=== PATIENT | female | born 1990 | race Caucasian/White ===

== ENCOUNTER 2020-10-23 08:09 | Inpatient (IN) | payer OTHER, SELFPAY ==
[2020-10-23] VITALS (17 sets, daily range): BP systolic 101–144; BP diastolic 37–121; PULSE 76–234; RESP 16–18; TEMP 36.6–37.2; O2SAT 97–100
--- NOTE | 2020-10-23 08:33 | WPDOBADMIT ---
Obstetrics - Admit Note Admission Note: 30 y/o here in spontaneous labor. record reviewed. No pertinent additions to the history and/or any subsequent changes in the physical findings that are not consistent with the expected course of the were found. Additions to the history and/or subsequent changes in the physical findings follow. None.
[2020-10-23] MEDS: LACTATED RINGERS 1,000 ML 125 ML IV CONT (08:42)
[2020-10-23] MEDS: AMPICILLIN 2 GM/NS 100 ML 2 GM/100 ML BAG IVPB (08:51)
[2020-10-23 08:52] LABS: Basophils Percent Auto 0.3 % (0.2-1.2); Eosinophils Absolute Auto 0.2 K/mm3 (0-0.3); Eosinophils Percent Auto 1.3 % (0-4.4); Hematocrit 36.6 % (37.0-47.0); Hemoglobin 12.9 g/dL (12.0-15.0); Immature Granulocyte Absolute 0.11 K/mm3 (0.00-0.031); Immature Granulocyte Percent A 0.8 % (0-0.5); Lymphocytes Absolute Auto 1.97 K/mm3 (0.9-3.2); Lymphocytes Percent Auto 13.9 % (18.3-44.2); Mean Corpuscular HGB Conc 35.2 g/dl (32-36); Mean Corpuscular Hemoglobin 32.9 pg (26-34); Mean Corpuscular Volume 93.4 fl (80-100); Mean Platelet Volume 10.1 fl (7.4-10.4); Monocytes Absolute Auto 1.3 K/mm3 (0.1-0.6); Monocytes Percent Auto 8.8 % (2.6-8.5); Neutrophils Absolute Auto 10.7 K/mm3 (1.3-6.7); Neutrophils Percent Auto 74.9 % (45.5-73.1); Platelet Count Result 298 k/mm3 (150-375); Red Blood Count 3.92 M/mm3 (4.2-5.4); Red Cell Distribution Width 12.7 % (11.5-14.5); White Blood Count 14.2 K/mm3 (4.5-10.0)
[2020-10-23 09:06] LABS: Alanine Aminotransferase 12 U/L (4-35); Albumin Level 3.4 g/dL (3.5-5.1); Alkaline Phosphatase 192 U/L (38-126); Anion Gap 8 mmol/L (8-16); Aspartate Amino Transferase 24 U/L (14-36); Bilirubin,Total < 0.1 mg/dL (0.2-1.3); Blood Urea Nitrogen 13 mg/dL (7-17); Calcium 8.8 mg/dL (8.4-10.2); Carbon Dioxide 17 mmol/L (22-30); Chloride 109 mmol/L (98-107); Estimated Glomerular Filt Rate > 60; Glucose 98 mg/dL (65-105); Potassium 3.7 mmol/L (3.4-5.0); Sodium 134 mmol/L (137-145)
--- NOTE | 2020-10-23 09:14 | LDADM ---
This patient, Jessie Valle, was admitted to Labor/Delivery/Recovery 107 on 10/23/20 at 08:09. Plans for labor, pain management and were discussed with patient. Patient/family oriented to hospital policies and general routines including ID bracelet, bed and alarms, visiting hours, pain management, procedures, bathroom and other care routines, personal items, smoking policy, room service/diet and guest tray routines, infant security routines, and visiting hours. Patient/Family are encouraged to report perceived risks to care and to ask questions if they do not understand what they are told or what they should do. See OBIX for further documentation.
[2020-10-23 09:20] LABS: Uric Acid 4.7 mg/dL (2.5-7.5)
--- NOTE | 2020-10-23 11:25 | PM.OBPRVD ---
OB - Delivery Note Procedure Delivery date: 10/23/20 events: Labor < 37 Weeks Intrapartal events: None Delivery monitor: external FHT and external uterine Route of delivery: Quantitative Blood Loss (ml): 147 Anesthesia type: Local [place] Baby Date of : 10/23/20 Time of : 10:35 Weeks of gestation at delivery: 36 gender: Male Weight (pounds): 5 Weight (ounces): 12 presentation: vertex position: Right Occiput Anterior Placenta delivery description: Spontaneous score one minute: 3 score five minutes: 8 Narrative: Delivery per Z. Due SNM. Not vigorous at . Cord clamped and cut and handed off to awaiting RN and Peds.
[2020-10-23] MEDS: IBUPROFEN 600 MG TABLET PO ×2 (12:00→19:45)
[2020-10-23] MEDS: OXYTOCIN 10 UNITS/ML VIAL (12:18)
--- NOTE | 2020-10-23 13:29 | PC.NURSE ---
Patient transferred to post room #282 via wheelchair. Support person present. Oriented to unit, room, information board, rooming in, admission packet and security measures. Patient verbalizes understanding.
[2020-10-23 13:37] LABS: Benzodiazepines Screen Urine Negative (Negative)
[2020-10-23 13:41] LABS: Amphetamine Screen Urine Negative (Negative); Barbiturate Screen Urine Negative (Negative); Cannabinoid Screen Urine Positive (Negative); Cocaine Screen Urine Negative (Negative); Methadone Screen Urine Negative (Negative); Opiate Screen Urine Negative (Negative); Phencyclidine Screen Urine Negative (Negative)
[2020-10-23] MEDS: ACETAMINOPHEN 325 MG TABLET 650 MG PO (13:52)
[2020-10-23] MEDS: BENZOCAINE 20% AER SPR (*SP) 56 GM CAN 1 SPRAY TOPICAL (13:53)
[2020-10-24] MEDS: IBUPROFEN 600 MG TABLET PO (04:25)
[2020-10-24 05:44] LABS: Hematocrit 31.7 % (37.0-47.0); Hemoglobin 10.7 g/dL (12.0-15.0)
[2020-10-24 06:28] LABS: Rapid Plasma Reagin Non-Reactive (NonReactive)
[2020-10-24 08:00] VITALS: BP 103/83; PULSE 87; RESP 18; TEMP 36.9; O2SAT 99
--- NOTE | 2020-10-24 08:25 | PM.OBPNVD ---
OB - PN: Subj Subjective Date/time seen: 10/24/20 08:25 Patient comments: no complaints baby status: doing well OB - PN: Obj Data Labs CBC & Chem 7: 10/24/20 04:22 10/23/20 08:45 Labs: Laboratory Results - last 24 hr 10/23/20 10/23/20 10/23/20 08:45 08:45 08:45 WBC 14.2 H RBC 3.92 L Hgb 12.9 Hct 36.6 L MCV 93.4 MCH 32.9 MCHC 35.2 RDW 12.7 Plt Count 298 MPV 10.1 Immature Gran % (Auto) 0.8 H Neut % (Auto) 74.9 H Lymph % (Auto) 13.9 L Sargent % (Auto) 8.8 H Eos % (Auto) 1.3 Baso % (Auto) 0.3 Lymph # (Auto) 1.97 Sargent # (Auto) 1.3 H Eos # (Auto) 0.2 Baso # (Auto) 0.0 Abs Immat Gran (auto) 0.11 H Absolute Neuts (auto) 10.7 H Absolute Nucleated RBC 0.0 Nucleated RBC % 0.0 Sodium Potassium Chloride Carbon Dioxide Anion Gap BUN Creatinine Estim Creat Clear Calc Estimated GFR Glucose Uric Acid 4.7 Calcium Total Bilirubin AST ALT Alkaline Phosphatase Total Protein Albumin Urine Opiates Screen Urine Methadone Screen Ur Barbiturates Screen Ur Phencyclidine Scrn Ur Amphetamine Screen U Benzodiazepines Scrn Urine Cocaine Screen U Cannabinoids Screen RPR Non-reactive Blood Type Antibody Screen 10/23/20 10/23/20 10/23/20 08:45 08:45 12:42 WBC RBC Hgb Hct MCV MCH MCHC RDW Plt Count MPV Immature Gran % (Auto) Neut % (Auto) Lymph % (Auto) Sargent % (Auto) Eos % (Auto) Baso % (Auto) Lymph # (Auto) Sargent # (Auto) Eos # (Auto) Baso # (Auto) Abs Immat Gran (auto) Absolute Neuts (auto) Absolute Nucleated RBC Nucleated RBC % Sodium 134 L Potassium 3.7 Chloride 109 H Carbon Dioxide 17 L Anion Gap 8 BUN 13 Creatinine 0.70 Estim Creat Clear Calc Not Reportable Estimated GFR > 60 Glucose 98 Uric Acid Calcium 8.8 Total Bilirubin < 0.1 L AST 24 ALT 12 Alkaline Phosphatase 192 H Total Protein 7.0 Albumin 3.4 L Urine Opiates Screen Negative Urine Methadone Screen Negative Ur Barbiturates Screen Negative Ur Phencyclidine Scrn Negative Ur Amphetamine Screen Negative U Benzodiazepines Scrn Negative Urine Cocaine Screen Negative U Cannabinoids Screen Positive A RPR Blood Type O Positive Antibody Screen Negative 10/24/20 04:22 WBC RBC Hgb 10.7 L Hct 31.7 L MCV MCH MCHC RDW Plt Count MPV Immature Gran % (Auto) Neut % (Auto) Lymph % (Auto) Sargent % (Auto) Eos % (Auto) Baso % (Auto) Lymph # (Auto) Sargent # (Auto) Eos # (Auto) Baso # (Auto) Abs Immat Gran (auto) Absolute Neuts (auto) Absolute Nucleated RBC Nucleated RBC % Sodium Potassium Chloride Carbon Dioxide Anion Gap BUN Creatinine Estim Creat Clear Calc Estimated GFR Glucose Uric Acid Calcium Total Bilirubin AST ALT Alkaline Phosphatase Total Protein Albumin Urine Opiates Screen Urine Methadone Screen Ur Barbiturates Screen Ur Phencyclidine Scrn Ur Amphetamine Screen U Benzodiazepines Scrn Urine Cocaine Screen U Cannabinoids Screen RPR Blood Type Antibody Screen OB - PN A/P Plan day: 1 Plan: routine care and discharge home ( transfered.Pt desires early discharge.) Time Spent With Patient Time: Total time spent is greater than 50% in coordination of care (as documented) at patient's floor/unit and/or counseling patient: Time with patient: less than 15 minutes Review of Systems Review of Systems: All systems reviewed & are unremarkable except as noted in HPI and below Exam Narrative: Exam Narrative: Fundus firm and vaginal flow controlled. No lower ext redness, warmth, or edema. Negative homans. Const: General: comfortable Chest: Breast/axilla inspection: norm
[2020-10-24] MEDS: MULTIVIT/MIN/PREN/FOL AC/IRON TABLET 1 TAB PO (08:44)
--- NOTE | 2020-10-24 09:00 | PC.NURSE ---
Mother is pumping upon entering. Mother reports she was instructed on pump use during the night, mother has not pumped regularly. Discussed stimulation of milk supply and need for regular stimulation. Mother is pumping due to transfer. Reviewed instructions on breast pump care and usage, pumping schedule, nipple care, and collection and storage of breast milk. Encouraged [id number], breast massage and manual expression to stimulate supply. Pumping log provided and reviewed. Assessed patient for correct flange size, placement and draw. Patient verbalizes and demonstrates understanding of instructions. Reviewed transition to breast milk and engorgement/relief. . Reviewed regular medications mother is taking. Information provided per [place]. Reviewed community resources on the [facility] website and in the Mom/Baby guide. Information on outpatient services provided. Mother has no further questions at this time.
--- NOTE | 2020-10-24 09:28 | PC.NURSE ---
Patient viewed the discharge video Mother & Baby Care, The First Two Weeks . Patient was given the opportunity and encouraged to ask questions. Patient verbalized understanding of information shared and has been given the mother/baby guide for home reference.
--- NOTE | 2020-10-24 13:03 | PCCCNOTE ---
Care Coordination Consult: Met with pt. today regarding concerns for THC and possible PCP use during . Pt. reports this is her first child. FOB is Danyel who is supportive. Per nursing baby boy was transferred this morning to [facility] with Danyel. Per pt. she has family support including family and Danyel. Has all necessary equipment for baby including crib, carseat, clothing, bottles, and diapers. Pt. reports she hopes to breast feed at discharge. Requests to speak to the nurse. Pt. was provided resources as well as information regarding breast feeding while using marijuana. Pt. reports she will look into Healthy Families program, does not feel she will need [facility] services at this time. Pt. does reports she uses CBD oil due to her anxiety and depression diagnosis. Denies that she has a reliance on CBD, is aware that she will need to speak to her sheet metal technician regarding breast feeding and using the CBD. Pt. does take medications at home that include clonipin, wellbutrin, and celexa. Per nursing OB doctor and Event Marketing Specialist believed that pt. had a false positive for PCP during a appointment because of the above mentioned medications. Pt. only tested positive for marijuana at admission. Baby tested negative for all substance before being transferred to another hospital. Pt. anticipates discharging this morning and travelling to [facility] to visit the baby. Denies any further needs.
--- NOTE | 2020-11-14 07:44 | PM.OBDSVD ---
DS: Admitting Diagnosis Admitting Diagnosis Admitting Diagnosis: Labor DS: Discharge Diagnosis Discharge Diagnosis (1) Vaginal delivery: Code(s): O80 - Encounter for full-term uncomplicated delivery Status: Acute OB - DS: Summary OB Procedures : None OB Procedures Intrapartum: Spontaneous Vag Delivery OB Procedures: : None Time Spent with Patient Time attestation: Total time spent providing and/or coordinating discharge services: Discharge Plan Discharge Attending physician on discharge: Catrachita Tam Consulting providers: Catrachita Tam Discharging Clinician: Catrachita Tam Patient Disposition: Home, Self-Care Activity: pelvic rest Diet: as tolerated Discharge Instructions: Education: Mom and Baby Guide Given to: Mother Follow-Up: Call your delivering provider's office for an appointment to be seen in: Call for appointment Mom and baby should come to the [facility] for the follow-up appointment. Appointment Date/Time: October 27, 2020 at 11:00 am What to expect at your follow-up visit: Physical Assessment Call [phone] if you are unable to keep your appointment time. BREAST CARE: * Wear a snug supportive bra. * For engorgement discomfort: Breast Feeding: * Apply warm moist washcloths * Express milk as needed to relieve engorgement * Wear loose clothing * For sore nipples: * Identify correct latch-on * Apply warm moist washcloths before and after nursing * Air dry nipples after nursing * May apply Lansinoh cream to nipples EPISIOTOMY/PERINEAL CARE: * Until bleeding stops, use your babar bottle after urinating * Change your pad frequently throughout the day * You may take sitz baths several times a day (fill your bathtub with warm water and soak for 20 minutes.) Do NOT bathe in the water * No tub baths until seen by your physician - You may shower ACTIVITY: * Rest as much as possible. * Do not exercise or lift anything heavier than your baby (such as laundry or other children.) * Avoid stairs or driving as much as possible. * Do not put anything into the vagina. No douching, tampons, or sexual activity until seen by physician. NOTIFY PHYSICIAN IF YOU HAVE ANY QUESTIONS OR IF ANY OF THE FOLLOWING SYMPTOMS OCCUR: * If your episiotomy or incision becomes red, swollen, or more painful than what you have experienced in the hospital. * If your vaginal bleeding becomes foul smelling. * If your vaginal bleeding becomes more heavy than a period or if your bleeding changes from pink to bright red. However, you may pass an occasional walnut-sized clot once or twice for the first week . * If you experience a sharp, shooting pain in you calves. * If you discover a hard, reddened area on your breast or if you experience flu-like symptoms. DIET: * Eat regular, well-balanced meals. * Drink plenty of fluids daily. If , drink to thirst. Patient Instructions: Antibiotic Form Stand Alone Forms: General Discharge Information Follow-up/Referrals: Catrachita Tam CNM [Certified Nurse Eyelet Maker] - Discharge Medications: Continued citalopram [Celexa] 40 mg Tablet 60 mg PO DAILY RF: 0 cetirizine [Zyrtec] 10 mg Tablet 10 mg PO DAILY RF: 0 clonazepam 0.5 mg Tablet 0.5 mg PO BID RF: 0 aspirin 81 mg Tablet 81 mg PO DAILY RF: 0 prenat.vits,jennifer,[id number] Tablet 1 tablet PO DAILY RF: 0 bupropion HCl [Wellbutrin XL] 150 mg Tablet Extended Release 24 Hr 150 mg PO QAM RF: 0 Date of admission: 10/23/20 08:09 Primary Care Provider: Tom,Donte Rey Admitting Provider: Vidya Sethi Attending physician on admission: Vidya Stehi Condition: Stable
== END 2020-10-24 10:50 | disposition home or self-care (01) | DRG 807 ==
LOC: ANHLDR 08:31 → ANHOB2 13:30
PROVIDERS: Advanced Practice Midwife; Admitting Provider Obstetrics & Gynecology; PCP Internal Medicine; Visit Provider Obstetrics & Gynecology
DX: O60.14X0 Preterm labor third trimester with preterm delivery third trimester, not applicable or unspecified (principal); Z37.0 Single live birth; Z3A.36 36 weeks gestation of pregnancy
CPT/HCPCS: 36415; 80053; 80307; 84112; 84550; 85014; 85018; 85025; 86592; 86850; 86900; 86901; 88307; A9270; J0290; J2590; J7120

== ENCOUNTER 2022-02-07 16:07 | Emergency (ER) | payer OTHER, SELFPAY ==
[2022-02-07 16:17] VITALS: BP 116/78; PULSE 104; RESP 18; TEMP 36.5; O2SAT 100
--- NOTE | 2022-02-07 17:13 | ED.EYEPROB ---
HPI - Eye Problem General Chief complaint: Eye Problems Stated complaint: eye problem Time Seen by Provider: 02/07/22 16:48 History of Present Illness HPI Narrative: 31-year-old female presents to the emergency room for evaluation of bilateral red eyes with purulent drainage for 5 days. Patient states on Friday she woke up both eyes were swollen and itchy, was associated with a runny nose sneezing postnasal drip and a fullness in both of her ears. The following day patient was seen at a local urgent care, and was diagnosed with bilateral conjunctivitis and started on Oflaxacin. She was also told that she had a middle ear infection and was given a prescription for amoxicillin. Patient states since Friday her eyes become more painful, swollen and has developed purulent drainage from them both. Patient continues to report pain to her left ear. Related Data Home Medications Medication Instructions Recorded Confirmed citalopram 40 mg tablet (Celexa) 40 mg PO DAILY 10/17/20 10/17/20 clonazepam 0.5 mg tablet 0.5 mg PO TID 10/17/20 10/17/20 amoxicillin 875 mg tablet 1 tablet PO BID 02/07/22 02/07/22 ofloxacin 0.3 % eye drops 2 drp EACH EYE QID 02/07/22 02/07/22 Allergies Allergy/AdvReac Type Severity Reaction Status Date / Time escitalopram [From Lexapro] Allergy Hallucinati Verified 02/07/22 16:28 ng gluten Allergy Gastrointestinal Verified 02/07/22 16:28 Upset wheat Allergy Gastrointestinal Verified 02/07/22 16:28 Upset Dairy Allergy Intermediate Diarrhea Uncoded 02/07/22 16:28 DAIRY Allergy Nausea and Uncoded 02/07/22 16:28 Vomiting Review of Systems Review of Systems: CONSTITUTIONAL: Denies fever, chills, or sweats. EYES: Denies visual changes. Reports redness and discharge. ENT: Reports rhinorrhea, congestion, sore throat, or otalgia. CARDIOVASCULAR: Denies chest pain, palpitations, or edema. RESPIRATORY: Denies cough or dyspnea. GASTROINTESTINAL: Denies abdominal pain, nausea, vomiting, or diarrhea. GENITOURINARY: Denies dysuria or hematuria. SKIN: Denies rash or itching. MUSCULOSKELETAL: Denies back pain, joint pain, or myalgia. NEUROLOGIC: Denies headache, numbness, dizziness, or weakness. PSYCHIATRIC: Denies anxiety or depression. [facility] Family History Family History Father Acute myocardial infarction Hypertension Chronic obstructive pulmonary disease Mother Acute myocardial infarction Hypertension Leukemia Grandparent Hypertension Diabetes mellitus Social History Social History Smoking status: Never smoker Substance use: current Other substance usage details: TAKES CBD FOR ANXIETY /DEPRESSION Spiritual care concerns: No Exam Narrative: GENERAL: Well-appearing, well-nourished, no physical limitations, and in no acute distress. HEAD: Normocephalic, atraumatic. EYES: Erythematous conjunctivae bilateral chemosis, purulent drainage noted, PERRLA and EOMI. bilateral inflamed eyelids ENT: External nose normal, Nares clear, clear rhinorrhea. Mucous membranes moist. Oropharynx without tonsillar hypertrophy exudate or other lesions. Left ear: Tragal tenderness, purulent drainage noted in the CHEST: Clear to auscultation. No respiratory distress. No wheezes rales or rhonchi. No tenderness. HEART: Regular rate and rhythm. No murmur heard. Normal peripheral pulses. ABDOMEN: Soft, nontender, nondistended, normal active bowel sounds. SKIN: Warm, dry, no rash. No noted wounds NEURO: No focal deficits. Alert and oriented x3. MAEW. CN's II-XI intact bilaterally, normal gait PSYCH: Cooperative. Normal mood and affect. Course Vital Signs Vital signs: Vital Signs Temperature 36.5 C 02/07/22 16:17 Pulse Rate 104 H 02/07/22 16:17 Respiratory Rate 18 02/07/22 16:17 Blood Pressure 116/78 02/07/22 16:17 Pulse Oximetry 100 02/07/22 16:17 Oxygen Delivery Sharonda
[2022-02-07] MEDS: diphenhydrAMINE HCl INJ 50 MG/ML VIAL 25 MG IV PUSH (17:42)
[2022-02-07] MEDS: SODIUM CHLORIDE 0.9% IV 1,000 ML 999 ML IV CONT (17:42)
[2022-02-07] MEDS: FAMOTIDINE 20 MG/2 ML VIAL IV PUSH (17:43)
[2022-02-07 19:10] VITALS: BP 108/69; PULSE 76; RESP 16; O2SAT 100
== END 2022-02-07 19:22 | disposition home or self-care (01) ==
PROVIDERS: Emergency Provider Nurse Practitioner Family; PCP Internal Medicine Endocrinology, Diabetes & Metabolism
DX: H10.13 Acute atopic conjunctivitis, bilateral (principal); H10.89 Other conjunctivitis; H60.92 Unspecified otitis externa, left ear
CPT/HCPCS: 96361; 96374; 96375; 99284; J1100; J1200; J7030